=== PATIENT | male | born 1955 | race Caucasian/White ===

== ENCOUNTER 2016-11-18 09:05 | Emergency (ER) | payer MEDICAID ==
[~2016-11-18] VITALS: Ht 160 cm; Wt 79.0 kg
[2016-11-18 09:14] VITALS: Ht 160 cm; Wt 79.0 kg
[2016-11-18] MEDS ORDERED: KETOROLAC 30 MG INJ IM STA (09:32)
[2016-11-18] MEDS ORDERED: IBUP-1542 PO (09:34)
--- NOTE | 2016-11-18 09:40 | ERD ---
ER Documentation Chief Complaint Date/Time DATE: 11/18/16 TIME: 09:35 Chief Complaint LEFT ELBOW PAIN/SWELLING HPI Patient is a 60-year-old male who presents to the emergency department for left elbow pain and swelling 1 week. Patient states that the swelling was worse. Patient states he has been using Arnica paste to the affected elbow. Patient does report significant improvement using the space. 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 Patient denies any falls or trauma. Patient has no redness, warmth or lesions. Patient denies any fevers, chills, nausea, vomiting, chest pain, shortness breath or loss consciousness. Patient is left-hand dominant. Patient denies any previous injuries to the affected extremity. ROS All systems reviewed and are negative except as per history of present illness. Medications Home Meds Active Scripts Ibuprofen* (Motrin*) 600 Mg Tab, 600 MG PO Q6, #30 TAB Prov:JENNY WAY PA-C 11/18/16 PMhx/Soc Medical and Surgical Hx: pt denies Medical Hx, pt denies Surgical Hx History of Surgery: No Anesthesia Reaction: No Hx Alcohol Use: No Hx Substance Use: No Hx Tobacco Use: No FmHx Family History: No diabetes Physical Exam Vitals Vital Signs Date Time Temp Pulse Resp B/P Pulse Ox O2 Delivery O2 Flow Rate FiO2 11/18/16 09:14 98.1 90 18 140/89 99 Physical Exam GENERAL: Well-developed, well-nourished male. Appears in no acute distress. HEAD: Normocephalic, atraumatic. EYES: Pupils are equally reactive bilaterally. EOMs grossly intact. No conjunctival erythema. ENT: Moist mucous membranes. No uvula deviation. No kissing tonsils. NECK: Supple. No meningismus. Normal range of motion of the neck. LUNG: Clear to auscultation bilaterally. No rhonchi, wheezing, rales or coarse breath sounds. HEART: Regular rate and rhythm. No murmurs, rubs or gallops. EXTREMITIES: Equal pulses bilaterally. No peripheral clubbing, cyanosis or edema. No unilateral leg swelling. NEUROLOGIC: Alert and oriented. Moving all four extremities without any difficulty. Normal speech. Steady gait. SKIN: Normal color. Warm and dry. No rashes or lesions. LEFT ELBOW: No deformity, erythema, ecchymosis noted. Slight bursal swelling of the elbow noted. No erythema, warmth. No lymphatic streaking. Skin intact. Normal range of motion of the elbow, shoulder and wrist. Patient able to supinate and pronate without any difficulty.. Non-tender to palpation of the humerus, forearm. Slightly tender to palpation of the bursa. Sensation intact to light touch. Neurovascularly intact. (Able to give thumbs up, make an ok sign , cross digits 2 and 3, thumb to pinky opposition. 2+ RP.) No snuffbox tenderness. Results 24 hrs Current Medications Medications (Trade) Dose Ordered Sig/Roselia Route PRN Reason Start Time Stop Time Status Last Admin Dose Admin Ketorolac Tromethamine (Toradol) 30 mg ONCE STAT IM 11/18/16 09:32 11/18/16 09:34 DC Procedures/MDM ED COURSE: The patient was stable throughout ED course. I kept the patient and/or family informed of laboratory and diagnostic imaging results throughout the ED course. MEDICATIONS GIVEN: Patient was offered Toradol IM however he declined. MEDICAL DECISION MAKING: This is a 60-year-old male presents with left elbow pain 1 week. Patient does admit to lifting heavy furniture at work. Patient denies any falls or trauma. Patient has been using Arnica paste to the affected area with significant alleviation of the swelling.. Vital signs were reviewed. Patient was afebrile. The patient denied any trauma or falls, there is no indication for x-ray imaging at this time. Patient normal range of motion of the elbow. Given these findings, the patients presentation is most consistent with bursitis. I have a much lower clinical concern for elbow dislocation, radial head fracture, olecranon fracture, capitellum fracture, humerus fracture, septic joint, biceps tendon rupture, osteomyelitis, rheumatoid arthritis, osteoarthritis or compartment syndrome. PRESCRIPTIONS: Ibuprofen DISCHARGE: At this time, patient is stable for discharge and outpatient management. RICE therapy and ROM exercises were advised to avoid stiffness. I have instructed the patient to follow-up with his/her primary care physician in 1-2 days. I have discussed with the patient the possibility of needing to see an personal loan specialist for further workup and imaging if the pain persists. I have instructed the patient to promptly return to the ER for any new or worsening symptoms including increased pain, swelling, redness, warmth or fever. The patient and/or family expressed understanding of and agreement with this plan. All questions were answered. Home care instructions were provided. Patients blood pressure was elevated (>120/80) but appears stable without evidence of hypertensive emergency, hypertensive urgency or end-organ failure. I had discussion with the patient about the risks of hypertension. I have advised the patient to follow up with his/her primary care physician for outpatient monitoring and treatment for hypertension in 2-3 days. I have instructed the patient to return to the ER for any new or worsening symptoms including chest pain, shortness of breath, headache, blurred vision, confusion, nausea, vomiting or LOC. Departure Diagnosis: Primary Impression: Bursitis Bursitis location: elbow Elbow bursitis location: olecranon bursitis Laterality: left Qualified Code: M70.22 - Olecranon bursitis of left elbow Condition: Stable Patient Instructions: Bursitis, Elbow (Olecranon) Referrals: COMMUNITY CLINICS YOU HAVE RECEIVED A MEDICAL SCREENING EXAM AND THE RESULTS INDICATE THAT YOU DO NOT HAVE A CONDITION THAT REQUIRES URGENT TREATMENT IN THE EMERGENCY DEPARTMENT. FURTHER EVALUATION AND TREATMENT OF YOUR CONDITION CAN WAIT UNTIL YOU ARE SEEN IN YOUR DOCTORS OFFICE WITHIN THE NEXT 1-2 DAYS. IT IS YOUR RESPONSIBILITY TO MAKE AN APPOINTMENT FOR FOL-UP CARE. IF YOU HAVE A PRIMARY DOCTOR --you should call your primary doctor and schedule an appointment IF YOU DO NOT HAVE A PRIMARY DOCTOR YOU CAN CALL OUR PHYSICIAN REFERRAL HOTLINE AT IF YOU CAN NOT AFFORD TO SEE A PHYSICIAN YOU CAN CHOSE FROM THE FOLLOWING [facility] CLINICS [facility] [address] [facility]. [facility] [address] [facility]. [facility] [address] [facility] [facility] [address] [facility] [facility] [address] [facility]. [facility]. [address] [facility] YOU HAVE RECEIVED A MEDICAL SCREENING EXAM AND THE RESULTS INDICATE THAT YOU DO NOT HAVE A CONDITION THAT REQUIRES URGENT TREATMENT IN THE EMERGENCY DEPARTMENT. FURTHER EVALUATION AND TREATMENT OF YOUR CONDITION CAN WAIT UNTIL YOU ARE SEEN IN YOUR DOCTORS OFFICE WITHIN THE NEXT 1-2 DAYS. IT IS YOUR RESPONSIBILITY TO MAKE AN APPOINTMENT FOR FOLOW-UP CARE. IF YOU HAVE A PRIMARY DOCTOR --you should call your primary doctor and schedule and appointment IF YOU DO NOT HAVE A PRIMARY DOCTOR YOU CAN CALL OUR PHYSICIAN REFERRAL HOTLINE AT . IF YOU CAN NOT AFFORD TO SEE A PHYSICIAN YOU CAN CHOSE FROM THE FOLLOWING [facility] INSTITUTIONS: [facility] [address] [place] [address] [facility] [address] [place] [address] [facility] [address] [place] [address] [facility] Hours: Mon-Fri 9:00 AM - 5:00 PM Additional Instructions: Call your primary care doctor TOMORROW for an appointment during the next 1-2 days.See the doctor sooner or return here if your condition worsens before your appointment time. JENNY WAY PA-C Nov 18, 2016 09:[address] PA-C Nov 18, 2016 09:40
== END 2016-11-18 10:03 | disposition home or self-care (01) ==
LOC: FTE 09:05
DX: M70.22 Olecranon bursitis, left elbow (principal); Y93.9 Activity, unspecified
CPT/HCPCS: J1885; Z7502; 99283

== ENCOUNTER 2017-11-18 10:06 | Emergency (ER) | END 2017-11-18 12:50 | disposition home or self-care (01) ==